=== PATIENT | male | born 1995 | race Caucasian/White ===

== ENCOUNTER 2017-02-19 11:05 | Inpatient (IN) | payer OTHER, MEDICAID ==
--- NOTE | 2017-02-19 11:28 | ED PDOC ---
Arrival/HPI - General Chief Complaint: Lower Extremity Problem/Injury Time Seen by Provider: 02/19/17 11:07 Historian: Patient - History of Present Illness Narrative History of Present Illness (Text): 02/19/17 11:17 Chika Fairhcild is a 21 year old male who denies any significant past medical history , presents to the ED for persistent left calf pain and swelling. Patient was last seen in the ED on 02/05/17 because he had fallen and landed on his left calf. Patient's X-Rays were negative. He has been using Ibuprofen with minimal relief, and he was prescribed Tramadol which he has not filled. Patient denies any fever, cough, shortness of breath, chest pain, or other associated symptoms. PMD: None reported. Time/Duration: > week (2 weeks) Symptom Onset: Gradual Symptom Course: Unchanged Activities at Onset: Significant Past Medical History - Provider Review Nursing Documentation Reviewed: Yes - Infectious Disease Hx of Infectious Diseases: None - Psychiatric Hx Substance Use: No - Anesthesia Hx Anesthesia: No Hx Anesthesia Reactions: No Hx Malignant Hyperthermia: No Family/Social History - Physician Review Nursing Documentation Reviewed: Yes Family/Social History: No Known Family HX Smoking Status: Heavy Smoker > 10 Cigarettes Daily Hx Alcohol Use: No Hx Substance Use: No Allergies/Home Meds Allergies/Adverse Reactions: Allergies No Known Allergies Allergy (Verified 02/19/17 11:18) Review of Systems - Physician Review All systems were reviewed & negative as marked: Yes - Review of Systems Constitutional: Normal. absent: Fevers Eyes: Normal ENT: Normal Respiratory: Normal. absent: SOB Cardiovascular: Normal. absent: Chest Pain Gastrointestinal: absent: Abdominal Pain, Nausea, Vomiting Genitourinary Male: absent: Dysuria Musculoskeletal: Other (Left calf pain and swelling) Neurological: absent: Headache, Dizziness Endocrine: absent: Polyuria, Polydipsia Physical Exam Vital Signs Reviewed: Yes Vital Signs Temp Pulse Resp BP Pulse Ox 02/19/17 11:11 98 F 78 19 138/65 99 Temperature: Afebrile Blood Pressure: Normal Pulse: Regular Respiratory Rate: Normal Appearance: Positive for: Well-Appearing, Non-Toxic, Comfortable Pain Distress: None Mental Status: Positive for: Alert and Oriented X 3 - Systems Exam Head: Present: Atraumatic, Normocephalic Pupils: Present: PERRL Conjunctiva: Present: Normal Mouth: Present: Moist Mucous Membranes Pharnyx: Present: Normal. No: ERYTHEMA, EXUDATE Neck: Present: Normal Range of Motion Respiratory/Chest: Present: Clear to Auscultation, Good Air Exchange. No: Respiratory Distress, Accessory Muscle Use Cardiovascular: Present: Regular Rate and Rhythm, Normal S1, S2. No: Murmurs Abdomen: Present: Normal Bowel Sounds. No: Tenderness, Distention, Peritoneal Signs Back: Present: Normal Inspection Upper Extremity: Present: Normal Inspection. No: Cyanosis, Edema Lower Extremity: Present: CALF TENDERNESS (Left Calf Tender to Palpation), NORMAL PULSES (Normal Pulses; Dorsalis Pedis), Normal ROM (Full Function; Proximal and Distal), Swelling (L calf swelling), Erythema (mild erythema with minimal warmth), Other (No Bony Tenderness Over the Tibia or Fibula). No: Temperature Abnormalties (No Warmth) Neurological: Present: GCS=15, CN II-XII Intact, Speech Normal Skin: Present: Warm, Dry, Normal Color. No: Rashes Psychiatric: Present: Alert, Oriented x 3, Normal Insight, Normal Concentration Medical Decision Making ED Course and Treatment: 02/19/17 11:17 Impression: Patient with left calf pain with 2nd visit to the ED, initial X-Ray negative. No cp or sob. Differential Diagnosis include but are not limited to: Muscle Strain vs. Hematoma vs. DVT Plan: -- LE Duplex -- Left Tibia Fibula X-Ray -- Reassess and disposition Prior Visits: Notes and results from previous visits were reviewed. Patient was last seen in the ED on 02/05/17 for left calf pain. Progress Notes: 02/19/17 12:52 Patient LE doppler sono showing left peroneal vein DVT. Patient will need anticoagulation. Given lack of pmd and reporting he is uninsured with no follow up, he is a poor candidate for eliquis or to send home on lovenox. He will need to be placed in the hospital on observation for further treatment till there is a certain assurance for immediate outpatient follow up. Case discussed with Dr. Mckeon, hospitalist. - RAD Interpretation Radiology Orders: 02/19/17 11:12 DUPLEX LOWER EXTRM VEIN LEFT [US] Stat Belly Packer: Radiologist - Medication Orders Current Medication Orders: Discontinued Medications Enoxaparin Sodium (Lovenox) 70 mg SC ONCE STA PRN Reason: Protocol Stop: 02/19/17 12:46 Ketorolac Tromethamine (Toradol) 60 mg IM STAT STA Stop: 02/19/17 11:27 Last Admin: 02/19/17 12:01 Dose: 60 MG IM Administration Charges Document 02/19/17 12:01 GMI (Rec: 02/19/17 12:02 GMI [id number]) Injection Site MAR Injection Site Left Gluteus Errol Charges for Administration # of IM Administrations 1 - Scribe Statement The provider has reviewed the documentation as recorded by the Rhys Zavala Provider Attestation: All medical record entries made by the Rhys were at my direction and personally dictated by me. I have reviewed the chart and agree that the record accurately reflects my personal performance of the history, physical exam, medical decision making, and the department course for this patient. I have also personally directed, reviewed, and agree with the discharge instructions and disposition. Disposition/Present on Arrival - Present on Arrival Any Indicators Present on Arrival: No History of DVT/PE: No History of Uncontrolled Diabetes: No Urinary Catheter: No History of Decub. Ulcer: No History Surgical Site Infection Following: None - Disposition Have Diagnosis and Disposition been Completed?: Yes Diagnosis: Deep venous thrombosis (DVT) of peroneal vein Disposition: HOSPITALIZED Disposition Time: 12:50 Patient Plan: Observation Condition: FAIR
[2017-02-19] MEDS ORDERED: Enoxaparin 80 mg Syringe SC STA (12:45)
[2017-02-19 13:34] LABS: ADD MANUAL DIFF? NO
[2017-02-19 13:37] LABS: BASO # 0.01 K/mm3 (0.0-2.0); BASO % 0.2 % (0.0-3.0); EOS # 0.2 (0.0-0.7); EOS % 4.5 % (1.5-5.0); GRAN # 2.11 (1.4-6.5); GRAN % 49.7 % (50.0-68.0); LYMPH # 1.6 (1.2-3.4); LYMPH % 37.3 % (22.0-35.0); MEAN CELL VOLUME 76.6 fL (80.0-105.0); MEAN CORPUSCULAR HEMOGLOBIN 25.7 pg (25.0-35.0); MEAN CORPUSCULAR HGB CONC 33.6 g/dl (31.0-37.0); MEAN PLATELET VOLUME 9.5 fl (7.0-11.0); MONO # 0.4 (0.1-0.6); MONO % 8.3 % (1.0-6.0); PLATELET COUNT 199 10^3/uL (120.0-450.0); RED CELL DISTRIBUTION WIDTH 12.9 % (11.5-14.5); WHITE BLOOD COUNT 4.2 10^3/ul (4.5-11.0)
--- NOTE | 2017-02-19 13:38 | CP.PCM.HP ---
History of Present Illness - History of Present Illness History of Present Illness: 21 yrs old male came to the ER for c/o left leg pain since february 05when he received injury to the left leg after he fell, pt was seen in ER and d/c home and pt came back with left leg swelling and pain , u/s showed dvt , pt was started on lovonox in the ER and admitted.no cp ,no sob.xray was negative for fracture. Present on Admission - Present on Admission Any Indicators Present on Admission: No Review of Systems - Review of Systems Review of Systems: negative for system review. - Musculoskeletal Musculoskeletal: As Per HPI (left leg swelling and pain.) Past Patient History - Infectious Disease Hx of Infectious Diseases: None - Past Social History Smoking Status: Heavy Smoker > 10 Cigarettes Daily - PSYCHIATRIC Hx Substance Use: No - SURGICAL HISTORY Hx Surgeries: No - ANESTHESIA Hx Anesthesia: No Hx Anesthesia Reactions: No Hx Malignant Hyperthermia: No Meds Allergies/Adverse Reactions: Allergies Allergy/AdvReac Type Severity Reaction Status Date / Time No Known Allergies Allergy Verified 02/19/17 13:50 Physical Exam - Head Exam Head Exam: NORMOCEPHALIC - Eye Exam Eye Exam: Normal appearance Pupil Exam: PERRL - ENT Exam ENT Exam: Mucous Membranes Moist - Neck Exam Neck exam: Positive for: Full Rom - Respiratory Exam Respiratory Exam: Clear to Auscultation Bilateral, NORMAL BREATHING PATTERN - Cardiovascular Exam Cardiovascular Exam: RRR, +S1, +S2 - GI/Abdominal Exam GI & Abdominal Exam: Normal Bowel Sounds, Soft - Rectal Exam Rectal Exam: Deferred - Extremities Exam Extremities exam: Positive for: calf tenderness Additional comments: pt has swelling of left leg ,no erythema pulses are intact.caity has left calf tenderness ,and has bluish discoloration og big toe nail from previous injury. - Neurological Exam Neurological exam: Alert, CN II-XII Intact, Oriented x3 - Skin Skin Exam: Dry, Warm Results - Vital Signs Recent Vital Signs: Last Vital Signs Temp 98 F 02/19/17 11:11 Pulse 78 02/19/17 11:11 Resp 19 02/19/17 11:11 BP 138/65 02/19/17 11:11 Pulse Ox 99 02/19/17 11:11 - Labs Result Diagrams: 02/20/17 07:45 02/20/17 07:45 Labs: pending. - Impressions Impression: acute left lower extremity dvt. fall and injury to left leg 2 weeks back. Assessment & Plan - Assessment and Plan (Free Text) Assessment: acute dvt/s/p fall and injury to left lower extremity. Plan: cbc, bmp , pt ptt , lovonox , social service consult./pt cannot afford outpt meds. - Date & Time Date: 02/19/17 Time: 13:38
[2017-02-19 13:47] LABS: ALB/GLOB RATIO 1.1 (1.1-1.8); ALKALINE PHOSPHATASE 91 U/L (38-133); ALT/SGPT 22 U/L (7-56); AST/SGOT 39 U/L (15-59); BILIRUBIN,TOTAL 0.5 mg/dL (0.2-1.3); BLOOD UREA NITROGEN 17 mg/dL (7-21); CALCIUM 9.3 mg/dL (8.4-10.5); CARBON DIOXIDE 27 mmol/L (21-33); CHLORIDE 103 mmol/L (98-107); GFR AFRICAN-AMERICAN > 60; GLUCOSE,RANDOM 75 mg/dL (70-110); LIPASE 75 U/L (23-300); POTASSIUM 4.1 mmol/L (3.6-5.0); SODIUM 139 mmol/L (132-148); TOTAL PROTEIN 7.9 g/dL (5.8-8.3)
[2017-02-19 13:56] LABS: INR 0.96 (0.93-1.08); PARTIAL THROMBOPLASTIN TIME 25.7 Seconds (23.7-30.8)
--- NOTE | 2017-02-19 16:37 | US ---
PROCEDURE: Left lower extremity venous US HISTORY: Leg pain and swelling. Evaluate for DVT. PHYSICIAN(S): Canelo Cooper MD. TECHNIQUE: Duplex sonography and color-flow Doppler with graded compression were used to evaluate the deep venous system of the left lower extremity. FINDINGS: Acute occlusive thrombus is noted in the left peroneal veins. The left popliteal vein, femoral vein and CFV are normal and compressible IMPRESSION: 1. Acute left tibial DVT. A follow up US is recommended in 7-10 days.
[2017-02-19 16:39] VITALS: BMI 19.6
[2017-02-19] MEDS ORDERED: Pneumococcal 23-Valent Vaccine IM ONE (16:39)
[2017-02-19] MEDS ORDERED: Influenza Vaccine 45 MCG/0.5 ml IM ONE (16:39)
[2017-02-20] MEDS ORDERED: Enoxaparin 80 mg Syringe SC SCH (01:00)
[2017-02-20] MEDS: Pantoprazole 40 mg EC Tab PO SCH (06:33)
[2017-02-20 08:12] LABS: ADD MANUAL DIFF? NO
[2017-02-20 08:19] LABS: BASO # 0.02 K/mm3 (0.0-2.0); BASO % 0.5 % (0.0-3.0); EOS # 0.2 (0.0-0.7); EOS % 6.4 % (1.5-5.0); GRAN # 1.48 (1.4-6.5); GRAN % 39.4 % (50.0-68.0); HEMATOCRIT 41.4 % (42.0-52.0); LYMPH # 1.7 (1.2-3.4); LYMPH % 46.3 % (22.0-35.0); MEAN CELL VOLUME 76.5 fL (80.0-105.0); MEAN CORPUSCULAR HEMOGLOBIN 25.1 pg (25.0-35.0); MEAN CORPUSCULAR HGB CONC 32.9 g/dl (31.0-37.0); MEAN PLATELET VOLUME 9.6 fl (7.0-11.0); MONO # 0.3 (0.1-0.6); MONO % 7.4 % (1.0-6.0); PLATELET COUNT 205 10^3/uL (120.0-450.0); WHITE BLOOD COUNT 3.8 10^3/ul (4.5-11.0)
[2017-02-20 08:32] LABS: BLOOD UREA NITROGEN 15 mg/dL (7-21); CALCIUM 9.2 mg/dL (8.4-10.5); CARBON DIOXIDE 25 mmol/L (21-33); CHLORIDE 102 mmol/L (98-107); GFR AFRICAN-AMERICAN > 60; GLUCOSE,RANDOM 103 mg/dL (70-110); POTASSIUM 4.2 mmol/L (3.6-5.0); SODIUM 138 mmol/L (132-148)
[2017-02-20] MEDS: Enoxaparin 80 mg Syringe SC SCH ×2 (10:15→21:44)
--- NOTE | 2017-02-20 14:16 | CP.PCM.PN ---
<Bernard Medrano - Last Filed: 02/20/17 14:12> Subjective - Date & Time of Evaluation Date of Evaluation: 02/20/17 Time of Evaluation: 08:50 - Subjective Subjective: Medicine Progress note. Dr. Samuels Pt seen and examined at bedside. No acute events overnight. Patient still with left calf pain. States that he is unable to bare any weight on left extremity. No F/C. No swelling. No N/V/D. No SOB/CP. No new complaints. Objective - Vital Signs/Intake and Output Vital Signs (last 24 hours): Temp Pulse Resp BP Pulse Ox 97.5 F L 54 L 16 101/50 L 99 02/20/17 07:55 02/20/17 07:55 02/20/17 07:55 02/20/17 07:55 02/20/17 07:55 Intake and Output: 02/20/17 02/20/17 06:59 18:59 Intake Total 240 Output Total 240 Balance 0 - Medications Medications: Current Medications Enoxaparin Sodium (Lovenox) 70 mg SC Q12H [facility] PRN Reason: Protocol Last Admin: 02/20/17 10:15 Dose: 70 mg Pantoprazole Sodium (Protonix Ec Tab) 40 mg PO 0630 [facility] Last Admin: 02/20/17 06:33 Dose: 40 mg - Labs Labs: 02/20/17 07:45 02/20/17 07:45 PT 10.4 Seconds (9.9-11.8) 02/19/17 13:20 INR 0.96 (0.93-1.08) 02/19/17 13:20 APTT 25.7 Seconds (23.7-30.8) 02/19/17 13:20 - Constitutional Appears: Well, No Acute Distress - Head Exam Head Exam: ATRAUMATIC, NORMAL INSPECTION, NORMOCEPHALIC - Eye Exam Eye Exam: EOMI, Normal appearance, PERRL. absent: Scleral icterus Pupil Exam: PERRL - ENT Exam ENT Exam: Mucous Membranes Moist, Normal Exam - Neck Exam Neck Exam: Full ROM - Respiratory Exam Respiratory Exam: Clear to Ausculation Bilateral, NORMAL BREATHING PATTERN. absent: Wheezes - Cardiovascular Exam Cardiovascular Exam: RRR, +S1, +S2. absent: JVD - GI/Abdominal Exam GI & Abdominal Exam: Soft, Normal Bowel Sounds. absent: Guarding, Tenderness - Extremities Exam Additional comments: Left lower extremity, tender to palpation left calf. No erythema, no induration , no pitting edema. No knee pain, no ankle pain. - Back Exam Back Exam: NORMAL INSPECTION - Neurological Exam Neurological Exam: Alert, Awake, Oriented x3 - Psychiatric Exam Psychiatric exam: Normal Affect - Skin Skin Exam: Dry, Intact, Normal Color, Warm Assessment and Plan - Assessment and Plan (Free Text) Assessment: 21yo M with no significant PMHx here for evaluation of left lower leg pain. 1. Acute Left Tibial DVT. due immobilization after injury to left lower leg 2 weeks ago Lovenox 70mg SC q12 Will need treatment for at least 3 months f/u Duplex in 7 days recommended PT eval and treat 2. Acute injury to left lower leg 2 weeks ago f/u CT left lower extremity to evaluate for muscle injury CPK wnl Continue 3. PPx SCDs contraindicated on Theraputic dose of Lovenox q12 Protonix 40mg PO Daily Discussed case with Dr. Linda Medrano PGY1 <Nelson Mckeon - Last Filed: 02/20/17 14:48> Objective - Vital Signs/Intake and Output Vital Signs (last 24 hours): Temp Pulse Resp BP Pulse Ox 97.5 F L 54 L 16 101/50 L 99 02/20/17 07:55 02/20/17 07:55 02/20/17 07:55 02/20/17 07:55 02/20/17 07:55 Intake and Output: 02/20/17 02/20/17 06:59 18:59 Intake Total 240 Output Total 240 Balance 0 - Medications Medications: Current Medications Enoxaparin Sodium (Lovenox) 70 mg SC Q12H [facility] PRN Reason: Protocol Last Admin: 02/20/17 10:15 Dose: 70 mg Pantoprazole Sodium (Protonix Ec Tab) 40 mg PO 0630 [facility] Last Admin: 02/20/17 06:33 Dose: 40 mg - Labs Labs: 02/20/17 07:45 02/20/17 07:45 PT 10.4 Seconds (9.9-11.8) 02/19/17 13:20 INR 0.96 (0.93-1.08) 02/19/17 13:20 APTT 25.7 Seconds (23.7-30.8) 02/19/17 13:20 Assessment and Plan - Assessment and Plan (Free Text) Assessment: attending note; Patient is a 21-year-old [place] Citizen male admitted with left tibial DVT. Started on Lovenox subcutaneous injection. patient will need treatment with oral anticoagulant for 3 months. we will get case management social worker evaluation to get po Eliquis. [facility] care Evaluation requested. Needs repeat ultrasound in 7-10 days. Patient had a fall and injury of the left calf 2 weeks ago. He has not been walking around much since the fall. Currently continues to have left cough pain. cT ordered. Physical therapy evaluation requested. Discharge home tomorrow if eliquis is arranged. upon discharge the patient will follow[place] [facility]. Attending/Attestation - Attestation I have personally seen and examined this patient.: Yes I have fully participated in the care of the patient.: Yes I have reviewed all pertinent clinical information, including history, physical exam and plan: Yes
[2017-02-21] MEDS: Pantoprazole 40 mg EC Tab PO SCH (05:59)
[2017-02-21 08:18] LABS: ADD MANUAL DIFF? NO
[2017-02-21 08:22] LABS: BASO # 0.03 K/mm3 (0.0-2.0); BASO % 0.6 % (0.0-3.0); EOS # 0.2 (0.0-0.7); EOS % 3.3 % (1.5-5.0); GRAN # 2.55 (1.4-6.5); HEMATOCRIT 43.5 % (42.0-52.0); LYMPH # 1.8 (1.2-3.4); LYMPH % 36.1 % (22.0-35.0); MEAN CELL VOLUME 77.1 fL (80.0-105.0); MEAN CORPUSCULAR HEMOGLOBIN 25.5 pg (25.0-35.0); MEAN CORPUSCULAR HGB CONC 33.1 g/dl (31.0-37.0); MEAN PLATELET VOLUME 9.5 fl (7.0-11.0); MONO # 0.5 (0.1-0.6); PLATELET COUNT 217 10^3/uL (120.0-450.0); RED CELL DISTRIBUTION WIDTH 13.1 % (11.5-14.5); WHITE BLOOD COUNT 5.1 10^3/ul (4.5-11.0)
[2017-02-21 08:55] LABS: ALB/GLOB RATIO 1.1 (1.1-1.8); ALKALINE PHOSPHATASE 63 U/L (38-133); ALT/SGPT 30 U/L (7-56); AST/SGOT 34 U/L (15-59); BILIRUBIN,TOTAL 0.3 mg/dL (0.2-1.3); BLOOD UREA NITROGEN 14 mg/dL (7-21); CALCIUM 9.5 mg/dL (8.4-10.5); CARBON DIOXIDE 28 mmol/L (21-33); CHLORIDE 100 mmol/L (95-110); GFR AFRICAN-AMERICAN > 60; GLUCOSE,RANDOM 106 mg/dL (70-110); MAGNESIUM 1.8 mg/dL (1.7-2.2); POTASSIUM 4.4 mmol/L (3.6-5.0); SODIUM 139 mmol/L (132-148)
[2017-02-21] MEDS: Enoxaparin 80 mg Syringe SC SCH ×2 (09:48→22:07)
--- NOTE | 2017-02-21 10:33 | CT ---
PROCEDURE: CT of the left lower extremity HISTORY: Gastroc muscle pain, r/o tear COMPARISON: TECHNIQUE: CT of the left lower extremity was performed from the knee joint to the ankle without contrast FINDINGS: There is no muscular edema or hemorrhage to suggest tear. There is no subcutaneous edema. There are no bony abnormalities. IMPRESSION: Negative study
--- NOTE | 2017-02-21 15:42 | CP.PCM.PN ---
<Armen Elizabeth - Last Filed: 02/21/17 15:45> Subjective - Date & Time of Evaluation Date of Evaluation: 02/21/17 Time of Evaluation: 07:45 - Subjective Subjective: PGY-1 Medicine Progress note for Dr. Nelson Pt seen and examined at bedside. No acute events overnight. Patient still with left calf pain. He reported that he is unable to bare any weight on left extremity. No F/C. No swelling. No N/V/D. No SOB/CP. No new complaints. Objective - Vital Signs/Intake and Output Vital Signs (last 24 hours): Temp Pulse Resp BP Pulse Ox 98.2 F 55 L 18 116/64 99 02/21/17 07:30 02/21/17 07:30 02/21/17 07:30 02/21/17 07:30 02/21/17 07:30 Intake and Output: 02/21/17 02/21/17 06:59 18:59 Intake Total 2180 Balance 2180 - Medications Medications: Current Medications Enoxaparin Sodium (Lovenox) 70 mg SC Q12H [facility] PRN Reason: Protocol Last Admin: 02/21/17 09:48 Dose: 70 mg Pantoprazole Sodium (Protonix Ec Tab) 40 mg PO 0630 [facility] Last Admin: 02/21/17 05:59 Dose: 40 mg - Labs Labs: 02/21/17 08:00 02/21/17 08:00 PT 10.4 Seconds (9.9-11.8) 02/19/17 13:20 INR 0.96 (0.93-1.08) 02/19/17 13:20 APTT 25.7 Seconds (23.7-30.8) 02/19/17 13:20 - Constitutional Appears: No Acute Distress - Head Exam Head Exam: ATRAUMATIC, NORMOCEPHALIC - Eye Exam Eye Exam: EOMI, Normal appearance Pupil Exam: PERRL - ENT Exam ENT Exam: Mucous Membranes Moist - Respiratory Exam Respiratory Exam: Clear to Ausculation Bilateral, NORMAL BREATHING PATTERN - Cardiovascular Exam Cardiovascular Exam: REGULAR RHYTHM, +S1, +S2 - GI/Abdominal Exam GI & Abdominal Exam: Soft, Normal Bowel Sounds. absent: Tenderness - Extremities Exam Extremities Exam: Calf Tenderness (left), Normal Capillary Refill - Back Exam Back Exam: absent: CVA tenderness (L), CVA tenderness (R) - Neurological Exam Neurological Exam: Abnormal Gait, Alert, Awake, CN II-XII Intact, Oriented x3 - Psychiatric Exam Psychiatric exam: Normal Affect, Normal Mood - Skin Skin Exam: Dry, Intact, Normal Color, Warm Assessment and Plan - Assessment and Plan (Free Text) Plan: 21yo M with no significant PMHx here for evaluation of left lower leg pain. 1. Acute Left Tibial DVT. due immobilization after injury to left lower leg 2 weeks ago Lovenox 70mg SC q12 Will need treatment for at least 3 months - likely DC on Eliquis depending on cost f/u Duplex in 7 days recommended PT eval and treat Heme/Onc consult, Dr. Hylton, help appreciated 2. Acute injury to left lower leg [address] left lower extremity: negative study CPK wnl Continue 3. PPx SCDs contraindicated on Theraputic dose of Lovenox q12 Protonix 40mg PO Daily <Dolly Nelson B - Last Filed: 02/22/17 16:43> Objective - Vital Signs/Intake and Output Vital Signs (last 24 hours): Temp Pulse Resp BP Pulse Ox 98.1 F 72 18 124/70 98 02/22/17 08:00 02/22/17 08:00 02/22/17 08:00 02/22/17 08:00 02/22/17 08:00 Intake and Output: 02/22/17 02/22/17 06:59 18:59 Intake Total 1200 Balance 1200 - Labs Labs: 02/21/17 08:00 02/21/17 08:00 PT 10.4 Seconds (9.9-11.8) 02/19/17 13:20 INR 0.96 (0.93-1.08) 02/19/17 13:20 APTT 25.7 Seconds (23.7-30.8) 02/19/17 13:20 Attending/Attestation - Attestation I have personally seen and examined this patient.: Yes I have fully participated in the care of the patient.: Yes I have reviewed all pertinent clinical information, including history, physical exam and plan: Yes Notes (Text): I have seen and examined patient with the resident. This is 21 year old male with history of left leg injury 2 weeks ago which resulted in short period of immobilization who got admitted for worsening pain in right lower extremity and found to have acute DVT of left leg. Patient is currently on lovenox. Discussed with casework manager regarding arranging eliquis for home. Patient states that he is able to bear weight on his leg today. CT of LE is negative. Heme onc consult pending. Dr Dolly Nelson
[2017-02-22] MEDS: Pantoprazole 40 mg EC Tab PO SCH (06:27)
[2017-02-22 09:13] VITALS: BP 124/70; PULSE 72; RESP 18; TEMP 98.1; O2SAT 98
[2017-02-22] MEDS: Enoxaparin 80 mg Syringe SC SCH (10:48)
--- NOTE | 2017-02-22 11:59 | CON ---
DATE: 02/22/2017 SUBJECTIVE: This is a 21-year-old man with no previous history before has a left tibial vein thrombo sis. Cigarettes positive, alcohol negative. No medications. No family history of blood clots and n o prior surgery. He fell on that leg and he had pain enough that he went to the Emergency Room sever al days ago. Went home on ibuprofen which he did not take and then came back to the hospital several days later for a swollen calf below the left knee and he was found to have an acute thrombosis of hi s tibial vein. PHYSICAL EXAMINATION: SKIN: No petechiae, no bruises. HEENT: Anicteric. NODES: None palpable in the axillary, cervical, supraclavicular or inguinal regions. LUNGS: Clear at present. No vertebral tenderness. HEART: S1, S2. ABDOMEN: Shows no organomegaly. EXTREMITIES: No edema. CENTRAL NERVOUS SYSTEM: No focal finding. TESTICALS: No mass or tenderness to rule out testicular carcinoma. ASSESSMENT AND PLAN: The patient has an acute below the knee thrombosis. I told him that he should stay on the blood thinners for 2-3 months and then he will be able to be discharged off of that if hi s Doppler study is negative at that time. I did order several blood tests. I explained to him there are abnormal proteins that can cause blood clots in the body and we will rule that out. So I ordere d a lupus anticoagulant, anticardiolipin antibody, antithrombin III, protein S, protein C, and the [employer] testing prothrombin [id number] gene mutation and a Leiden factor V gene mutation, and he will be fol lowed up in the clinic. He does not have an appointment to see me. Anup Warner [place] cc: [id number] TT: 02/22/2017 11:58:36 Confirmation # [id number] Dictation # [id number] elliot
--- NOTE | 2017-02-22 12:43 | CP.PCM.DIS ---
<Armen Elizabeth - Last Filed: 02/22/17 16:15> Provider - Provider Date of Admission: 02/20/17 14:48 Attending physician: Dolly Nelson MD Primary care physician: NO PRIMARY CARE PROVIDER Consults: heme/onc: Dr. Hylton Time Spent in preparation of Discharge (in minutes): 40 Diagnosis - Discharge Diagnosis (1) DVT (deep venous thrombosis) Status: Acute Comment: see hospital course Hospital Course - Lab Results Lab Results: Most Recent Lab Values WBC 5.1 10^3/ul (4.5-11.0) D 02/21/17 08:00 RBC 5.64 10^6/uL (3.5-6.1) 02/21/17 08:00 Hgb 14.4 gm/dL (14.0-18.0) 02/21/17 08:00 Hct 43.5 % (42.0-52.0) 02/21/17 08:00 MCV 77.1 fL (80.0-105.0) L 02/21/17 08:00 MCH 25.5 pg (25.0-35.0) 02/21/17 08:00 MCHC 33.1 g/dl (31.0-37.0) 02/21/17 08:00 RDW 13.1 % (11.5-14.5) 02/21/17 08:00 Plt Count 217 10^3/uL (120.0-450.0) 02/21/17 08:00 MPV 9.5 fl (7.0-11.0) 02/21/17 08:00 Gran % 50.0 % (50.0-68.0) 02/21/17 08:00 Lymph % (Auto) 36.1 % (22.0-35.0) H 02/21/17 08:00 [place] % (Auto) 10.0 % (1.0-6.0) H 02/21/17 08:00 Eos % (Auto) 3.3 % (1.5-5.0) 02/21/17 08:00 Baso % (Auto) 0.6 % (0.0-3.0) 02/21/17 08:00 Gran # 2.55 (1.4-6.5) 02/21/17 08:00 Lymph # 1.8 (1.2-3.4) 02/21/17 08:00 [place] # 0.5 (0.1-0.6) 02/21/17 08:00 Eos # 0.2 (0.0-0.7) 02/21/17 08:00 Baso # 0.03 K/mm3 (0.0-2.0) 02/21/17 08:00 PT 10.4 Seconds (9.9-11.8) 02/19/17 13:20 INR 0.96 (0.93-1.08) 02/19/17 13:20 APTT 25.7 Seconds (23.7-30.8) 02/19/17 13:20 Sodium 139 mmol/L (132-148) 02/21/17 08:00 Potassium 4.4 mmol/L (3.6-5.0) 02/21/17 08:00 Chloride 100 mmol/L (95-110) 02/21/17 08:00 Carbon Dioxide 28 mmol/L (21-33) 02/21/17 08:00 Anion Gap 15 (10-20) 02/21/17 08:00 BUN 14 mg/dL (7-21) 02/21/17 08:00 Creatinine 1.0 mg/dL (0.5-1.4) 02/21/17 08:00 Est GFR ( Amer) > 60 02/21/17 08:00 Est GFR (Non-Af Amer) > 60 02/21/17 08:00 Random Glucose 106 mg/dL (70-110) 02/21/17 08:00 Calcium 9.5 mg/dL (8.4-10.5) 02/21/17 08:00 Phosphorus 4.0 mg/dL (2.5-4.5) 02/21/17 08:00 Magnesium 1.8 mg/dL (1.7-2.2) 02/21/17 08:00 Total Bilirubin 0.3 mg/dL (0.2-1.3) 02/21/17 08:00 AST 34 U/L (15-59) 02/21/17 08:00 ALT 30 U/L (7-56) 02/21/17 08:00 Alkaline Phosphatase 63 U/L (38-133) 02/21/17 08:00 Total Creatine Kinase 154 U/L (35-230) 02/20/17 09:45 Total Protein 8.0 g/dL (5.8-8.3) 02/21/17 08:00 Albumin 4.2 g/dL (3.0-4.8) 02/21/17 08:00 Globulin 3.8 gm/dL 02/21/17 08:00 Albumin/Globulin Ratio 1.1 (1.1-1.8) 02/21/17 08:00 Lipase 75 U/L (23-300) 02/19/17 13:20 - Hospital Course Hospital Course: 21 M with no PMH presented to the [facility] with complaint of left leg pain since February 05. On that day, he received an injury to the left leg afterfalling. Patient was seen in ER at that time and eventually discharged home. The pain persisted and he returned to ER on 02/19 with left leg swelling and pain. Patient stated pain was 8/10 in severity. He described the pain as constant, dull and cramping pain. Nothing made pain better while walking made it worse. Patient forced to ambulate with crutches. Denied fever/chills, cp, sob, palpitations, abd pain, n/v/d, incontinence, numbness/tingling. Patient was admitted for DVT. This was confirmed by doppler which showed acute tibial DVT. Patient was started on Lovenox. Two days later, Lower extremity CT was completed and was negative. [facility] evaluation was completed and proper documentation was filled out. Physical therapy evaluated and treated patient. Hematology/Oncology, Dr. Hylton, was consulted. On 02/22, Dr. Hylton saw the patient. Hypercoagulability work up was ordered and patient was cleared for discharge to home. Patient to take Eliquis 5 mg PO BID for 3 months. Patient was instructed to follow up with [facility], [facility] and Dr. Hylton. Discharge Exam - Head Exam Head Exam: ATRAUMATIC, NORMOCEPHALIC - Eye Exam Eye Exam: EOMI, Normal appearance Pupil Exam: PERRL - ENT Exam ENT Exam: Mucous Membranes Moist - Respiratory Exam Respiratory Exam: Clear to PA & Lateral, NORMAL BREATHING PATTERN - Cardiovascular Exam Cardiovascular Exam: REGULAR RHYTHM, +S1, +S2 - GI/Abdominal Exam GI & Abdominal Exam: Normal Bowel Sounds, Soft. absent: Distended, Guarding, Rebound, Tenderness - Extremities Exam Extremities exam: calf tenderness (mild tenderness to deep palpation), normal capillary refill, pedal pulses present - Back Exam Back exam: absent: CVA tenderness (L), CVA tenderness (R) - Neurological Exam Neurological exam: Alert, CN II-XII Intact, Oriented x3 - Psychiatric Exam Psychiatric exam: Normal Affect, Normal Mood - Skin Skin Exam: Dry, Intact, Normal Color, Warm Discharge Plan - Discharge Medications Prescriptions: Apixaban [Eliquis] 5 mg PO BID #60 tab - Follow Up Plan Condition: STABLE Disposition: HOME/ ROUTINE Instructions: How to Stop Smoking (DC), Pneumococcal Vaccine for Adults (GEN), Deep Venous Thrombosis (DC), Influenza Vaccine (GEN), Regular Diet (DC), Computed Tomography Scan (DC) Additional Instructions: Patient is medically stable to discharge to home as per Dr. Nelson. Patient is to start new medication Eliquis 5 mg by mouth twice per day for 3 months. Patient is to follow up and establish with [facility] within 1 week. Patient is also to follow up with Heme/Onc (Dr. Hylton) within 1 week. Patient is to resume physical activity as tolerated. Patient's new medication is a blood thinner which may increase bleeding. Try to void traumatic activity due to risk of bleeding. Please return to ED if symptoms persist or condition worsens. All instructions stated above were discussed in detail with patient and family. Patient verbalized understanding and agreement. Referrals: [facility] [Outside] - Follow up with primary [facility] [Outside] - Follow up with primary Anup Hylton MD [Medical Doctor] - PCP,NO [Primary Care Provider] - Follow up with primary <Dolly Nelson - Last Filed: 02/22/17 16:49> Provider - Provider Date of Admission: 02/20/17 14:48 Attending physician: Dolly Nelson MD Primary care physician: NO PRIMARY CARE PROVIDER Hospital Course - Lab Results Lab Results: Most Recent Lab Values WBC 5.1 10^3/ul (4.5-11.0) D 02/21/17 08:00 RBC 5.64 10^6/uL (3.5-6.1) 02/21/17 08:00 Hgb 14.4 gm/dL (14.0-18.0) 02/21/17 08:00 Hct 43.5 % (42.0-52.0) 02/21/17 08:00 MCV 77.1 fL (80.0-105.0) L 02/21/17 08:00 MCH 25.5 pg (25.0-35.0) 02/21/17 08:00 MCHC 33.1 g/dl (31.0-37.0) 02/21/17 08:00 RDW 13.1 % (11.5-14.5) 02/21/17 08:00 Plt Count 217 10^3/uL (120.0-450.0) 02/21/17 08:00 MPV 9.5 fl (7.0-11.0) 02/21/17 08:00 Gran % 50.0 % (50.0-68.0) 02/21/17 08:00 Lymph % (Auto) 36.1 % (22.0-35.0) H 02/21/17 08:00 [place] % (Auto) 10.0 % (1.0-6.0) H 02/21/17 08:00 Eos % (Auto) 3.3 % (1.5-5.0) 02/21/17 08:00 Baso % (Auto) 0.6 % (0.0-3.0) 02/21/17 08:00 Gran # 2.55 (1.4-6.5) 02/21/17 08:00 Lymph # 1.8 (1.2-3.4) 02/21/17 08:00 [place] # 0.5 (0.1-0.6) 02/21/17 08:00 Eos # 0.2 (0.0-0.7) 02/21/17 08:00 Baso # 0.03 K/mm3 (0.0-2.0) 02/21/17 08:00 PT 10.4 Seconds (9.9-11.8) 02/19/17 13:20 INR 0.96 (0.93-1.08) 02/19/17 13:20 APTT 25.7 Seconds (23.7-30.8) 02/19/17 13:20 Sodium 139 mmol/L (132-148) 02/21/17 08:00 Potassium 4.4 mmol/L (3.6-5.0) 02/21/17 08:00 Chloride 100 mmol/L (95-110) 02/21/17 08:00 Carbon Dioxide 28 mmol/L (21-33) 02/21/17 08:00 Anion Gap 15 (10-20) 02/21/17 08:00 BUN 14 mg/dL (7-21) 02/21/17 08:00 Creatinine 1.0 mg/dL (0.5-1.4) 02/21/17 08:00 Est GFR ( Amer) > 60 02/21/17 08:00 Est GFR (Non-Af Amer) > 60 02/21/17 08:00 Random Glucose 106 mg/dL (70-110) 02/21/17 08:00 Calcium 9.5 mg/dL (8.4-10.5) 02/21/17 08:00 Phosphorus 4.0 mg/dL (2.5-4.5) 02/21/17 08:00 Magnesium 1.8 mg/dL (1.7-2.2) 02/21/17 08:00 Total Bilirubin 0.3 mg/dL (0.2-1.3) 02/21/17 08:00 AST 34 U/L (15-59) 02/21/17 08:00 ALT 30 U/L (7-56) 02/21/17 08:00 Alkaline Phosphatase 63 U/L (38-133) 02/21/17 08:00 Total Creatine Kinase 154 U/L (35-230) 02/20/17 09:45 Total Protein 8.0 g/dL (5.8-8.3) 02/21/17 08:00 Albumin 4.2 g/dL (3.0-4.8) 02/21/17 08:00 Globulin 3.8 gm/dL 02/21/17 08:00 Albumin/Globulin Ratio 1.1 (1.1-1.8) 02/21/17 08:00 Lipase 75 U/L (23-300) 02/19/17 13:20 Attending/Attestation - Attestation I have personally seen and examined this patient.: Yes I have fully participated in the care of the patient.: Yes I have reviewed all pertinent clinical information, including history, physical exam and plan: Yes Notes (Text): I have seen and examined patient with the resident. This is 21 year old male with history of left leg injury 2 weeks ago which resulted in short period of immobilization who got admitted for worsening pain in right lower extremity and found to have acute DVT of left leg. Patient is currently on lovenox. Eliquis was arranged for 1 month. He was advised to follow up in the clinic next week. He appears comfortable and wants to go home. Hematology consult appreciated. Antiphospholipid ab, antithrombin 3, factor 5, protein c & s , PT gene analysis ordered. Patient was advised to follow up in the clinic and also in Dr Hylton's office to follow up on the results. Dr Dolly Nelson
== END 2017-02-22 14:02 | disposition home or self-care (01) | DRG 131 ==
LOC: ED 11:05 → ERH 12:48 → 5RSO 14:20 → OBSVTOIN 02-20 14:48 → 5RSO 02-21 12:14
PROVIDERS: ADMIT Internal Medicine; ATTEND Hospitalist
DX: I82.442 Acute embolism and thrombosis of left tibial vein (principal)

== ENCOUNTER 2017-07-11 15:20 | Emergency (ER) | payer MEDICAID, OTHER ==
[2017-07-11 15:20] VITALS: BMI 19.6
== END 2017-07-11 16:33 | disposition left against medical advice (07) ==
LOC: ED 15:20
DX: Z02.89 Encounter for other administrative examinations (principal); S93.409A Sprain of unspecified ligament of unspecified ankle, initial encounter

== ENCOUNTER 2019-01-26 06:39 | Emergency (ER) | payer MEDICAID ==
[2019-01-26 06:40] VITALS: BMI 19.6
== END 2019-01-26 06:52 | disposition left against medical advice (07) ==
LOC: ED 06:39
DX: Z02.89 Encounter for other administrative examinations (principal); R20.2 Paresthesia of skin